=== PATIENT | male | born 1945 | race Caucasian/White ===

== ENCOUNTER 2020-08-25 14:59 | Emergency (ER) | payer OTHER ==
[~2020-08-25] VITALS: Ht 172.7 cm; Wt 77.1 kg
[2020-08-25] MEDS ORDERED: BAYER CHEWABLE81 MG PO (15:20)
[2020-08-25] MEDS ORDERED: LISINOPRIL10 MG PO (15:20)
[2020-08-25] MEDS ORDERED: LIPITOR40 MG PO (15:20)
[2020-08-25] MEDS ORDERED: GLUCOPHAGE1000 MG PO (15:21)
[2020-08-25] MEDS ORDERED: AMLODIPINE BESYL5 MG PO (15:21)
[2020-08-25] MEDS ORDERED: VITAMIN D310 MC4 PO (15:22)
[2020-08-25] MEDS ORDERED: VITAMIN B122500 MC1 PO (15:22)
[2020-08-25] MEDS ORDERED: OMEPRAZOLE10 MG PO (15:22)
--- NOTE | 2020-08-26 14:49 | EKG ---
[facility] [address] [place], [place] [address] Signed Normal sinus rhythm Normal ECG Confirmed by CRISTIANA SIMPSON DO ([id number]) on 08/26/2020 2:49:46 PM Electronically Signed By: CRISTIANA SIMPSON DO 08/26/20 1449 PATIENT NAME: VIJAY RICHARDS Electrocardiogram DATE OF : 45 PHYSICIAN: CRISTIANA SIMPSON DO REPORT #: [id number] REPORT IS CONFIDENTIAL AND NOT TO BE RELEASED WITHOUT AUTHORIZATION
== END 2020-08-25 19:49 | disposition home or self-care (01) ==
LOC: ED 14:59
DX: G45.9 Transient cerebral ischemic attack, unspecified (principal); E11.9 Type 2 diabetes mellitus without complications; I10 Essential (primary) hypertension; E78.00 Pure hypercholesterolemia, unspecified; Z87.891 Personal history of nicotine dependence; Z79.899 Other long term (current) drug therapy; Z79.82 Long term (current) use of aspirin; Z79.84 Long term (current) use of oral hypoglycemic drugs
CPT/HCPCS: 70210; 70551; 80053; 84484; 85025; 93005; 93010; 93880; 99284-25